=== PATIENT | male | born 1990 | race Caucasian/White ===

== ENCOUNTER 2019-02-12 09:04 | Emergency (ER) | payer OTHER ==
[~2019-02-12] VITALS: Ht 167.6 cm; Wt 62.2 kg
[2019-02-12 09:11] VITALS: BP 139/69; PULSE 81; RESP 18; Ht 167.6 cm; Wt 62.2 kg
[2019-02-12] MEDS ORDERED: CLIN300C10 PO (09:35)
[2019-02-12] MEDS ORDERED: FEXO180T61 PO (09:35)
--- NOTE | 2019-02-12 09:38 | ERD ---
ER Documentation Chief Complaint Chief Complaint sorjeremieroat, dx:tonsilitis by ENT, didn't start abx due to side effects HPI 28-year-old male presents with a history of sore throat for last month. He was treated once with amoxicillin. He also has history of allergic rhinitis. He did see his ENT this week who prescribed him Zithromax although he did not take the Zithromax because he is worried about heart arrhythmias. Patient has a history of anxiety and palpitations. He has had negative echo and Holter monitor. Denies fevers, cough, vomiting, chest pain, abdominal pain. Patient takes Claritin as well for his allergies. ROS All systems reviewed and are negative except as per history of present illness. Medications Home Meds Active Scripts Clindamycin Hcl* (Clindamycin Hcl*) 300 Mg Capsule, 300 MG PO TID for 10 Days, CAP Prov:FELICIA MAC MD 02/12/19 Fexofenadine Hcl* (Lien*) 180 Mg Tablet, 180 MG PO DAILY, #30 TAB Prov:FELICIA MAC MD 02/12/19 Allergies Allergies: Coded Allergies: No Known Allergy (Unverified , 02/12/19) PMhx/Soc Hx Alcohol Use: Yes (socially) Hx Substance Use: No Hx Tobacco Use: No Smoking Status: Former smoker FmHx Family History: No diabetes, No coronary disease, No other Physical Exam Vitals Vital Signs Date Temp Pulse Resp B/P (MAP) Pulse Ox O2 O2 Flow FiO2 Time Delivery Rate 02/12/19 98.8 81 18 139/69 100 09:11 (92) Physical Exam Const: No acute distress Head: Atraumatic Eyes: Normal Conjunctiva ENT: Normal External Ears, Nose and Mouth. Tonsil 2+ with enlarged crypts. Minimal erythema. Uvula midline. No exudate. Tenderness right anterior cervical lymph node area without dominant masses. Neck: Full range of motion. No meningismus. Resp: Clear to auscultation bilaterally Cardio: Regular rate and rhythm, no murmurs Abd: Soft, non tender, non distended. Normal bowel sounds Skin: No petechiae or rashes Back: No midline or flank tenderness Ext: No cyanosis, or edema Neur: Awake and alert Psych: Normal Mood and Affect Procedures/MDM She presents with a history of sore throat. He was prescribed Zithromax by his ENT doctor although he did not take it over concern of arrhythmias. Patient by request will be switched to clindamycin with recommendations for Zyrtec or Lien, continued primary care follow-up and return precautions. He has no signs of abscess, airway obstruction, additional complications. The patient was stable with no new complaints during the ER course. Clinically, there is no current evidence to suggest meningitis, sepsis, acute abdomen, pneumonia, stroke, acute coronary syndrome, pulmonary embolism, aortic dissection or any other emergent condition appearing to require further evaluation or hospitalization. Patient counseled regarding my diagnostic impression and care plan. Prior to discharge all questions answered. Pt agrees with treatment plan and understands strict return precautions. Pt is instructed to follow up with primary care provider within 24-48 hours. Precautionary instructions provided including instructions to return to the ER if not improving or for any worsening or changing symptoms or concerns. Departure Diagnosis: Primary Impression: Sore throat Condition: Stable Patient Instructions: When You Have a Sore Throat Additional Instructions: Switch antibiotics as requested. May be allergic because however. Recommend Lien or Zyrtec for allergies. See ENT or primary doctor for follow-up. FELICIA MAC MD Feb 12, 2019 09:38
== END 2019-02-12 10:15 | disposition home or self-care (01) ==
LOC: FTE 09:04
DX: J02.9 Acute pharyngitis, unspecified (principal); Z87.891 Personal history of nicotine dependence
CPT/HCPCS: 99283